=== PATIENT | female | born 1970 ===

== ENCOUNTER 2018-05-12 18:19 | Emergency (ER) | payer MEDICAID ==
[2018-05-12 18:29] VITALS: BP 137/84; PULSE 94; RESP 16; TEMP 98.3; O2SAT 99
[2018-05-12] MEDS ORDERED: Albuterol-Ipratrop 3 mg / 0.5 (3 ml) UD INH STA (18:49)
--- NOTE | 2018-05-12 18:59 | ED PDOC ---
HPI: SOB/CHF/COPD Time Seen by Provider: 05/12/18 18:30 Chief Complaint (Nursing): Shortness Of Breath Chief Complaint (Provider): Cough, chest tightness History Per: Patient History/Exam Limitations: no limitations Onset/Duration Of Symptoms: Days Current Symptoms Are (Timing): Still Present Quality: Tightness Exacerbating Factor(s): Coughing Associated Symptoms: Chest Pain, Other (near syncope) Additional History Per: Patient Additional Complaint(s): 48yo female with history of chronic bronchitis, diabetes, hypertension, high cholesterol, and neuropathy, comes to ER reporting 3 weeks of cough and chest tightness which has been waxing and waning. Patient states she was seen by her PMD twice and given 2 different courses of antibiotics, as well as albuterol and steroids but the symptoms persist. She reports today while coughing, she almost "passed out." She reports intermittent palpitation, pleuritic chest pain, left upper quadrant abdominal pain which is worse with coughing and moving. Patient also has had intermittent episodes of diarrhea and post-tussive vomiting. NO other complaints. PMD: Dr. Whipple Past Medical History Reviewed: Historical Data, Nursing Documentation, Vital Signs Vital Signs: Last Vital Signs Temp 98.3 F 05/12/18 18:25 Pulse 94 H 05/12/18 18:25 Resp 16 05/12/18 18:25 BP 137/84 05/12/18 18:25 Pulse Ox 99 05/12/18 18:25 - Medical History PMH: Anemia, Asthma, Bronchitis, Diabetes, HTN, Hypercholesterolemia, Hyperlipidemia Denies: Chronic Kidney Disease - Surgical History Surgical History: No Surg Hx - Family History Family History: States: Diabetes, Hypertension - Social History Current smoker - smoking cessation education provided: No Ex-Smoker (has not smoked in the last 12 months): Yes (quit 1 year ago) Alcohol: None Drugs: Denies - Immunization History Hx Tetanus Toxoid Vaccination: No Hx Influenza Vaccination: No Hx Pneumococcal Vaccination: No - Home Medications Home Medications: Ambulatory Orders Medication Instructions Recorded Alprazolam [Alprazolam ER] 0.5 mg PO DAILY 06/23/16 Atorvastatin [Lipitor] 10 mg PO HS 06/23/16 Cholecalciferol [Vitamin D] 50,000 unit PO 06/23/16 Cyclobenzaprine [Cyclobenzaprine 10 mg PO HS 06/23/16 HCl] Ibuprofen [Motrin Tab] 600 mg PO Q8 #30 tab 06/23/16 Losartan [Cozaar] 25 mg PO DAILY 06/23/16 Paroxetine HCl 10 mg PO DAILY 06/23/16 Sitagliptin Phos/Metformin HCl 1 each PO BID 06/23/16 [Janumet 50-500 mg Tablet] oxyCODONE/Acetaminophen [Percocet 1 tab PO QID PRN #20 tab 06/23/16 5/325 mg Tab] Alprazolam [Alprazolam ER] 0.5 mg PO DAILY 07/04/16 Atorvastatin [Lipitor] 10 mg PO HS 07/04/16 Cyclobenzaprine [Flexeril] 10 mg PO HS PRN 07/04/16 Losartan [Cozaar] 25 mg PO DAILY 07/04/16 Paroxetine HCl 10 mg PO DAILY 07/04/16 Sitagliptin Phos/Metformin HCl 1 each PO BID 07/04/16 [Janumet 50-500 mg Tablet] Azithromycin [Zithromax] 500 mg IVPB DAILY vial 07/16/16 Azithromycin [Zithromax] 500 mg IVPB DAILY vial 07/16/16 cefTRIAXone [Rocephin] 1 gm IVPB Q12H vial 07/16/16 Ibuprofen [Motrin Tab] 600 mg PO Q8 PRN #30 tab 05/12/18 Promethazine HCl/Codeine 10 ml PO Q6 PRN #120 ml 05/12/18 [Prometh-Codein 6.25-10 mg/5 ml] - Allergies Allergies/Adverse Reactions: Allergies Allergy/AdvReac Type Severity Reaction Status Date / Time No Known Allergies Allergy Unverified 01/13/14 11:56 Review of Systems ROS Statement: Except As Marked, All Systems Reviewed And Found Negative (as per HPI) Constitutional: Negative for: Fever Cardiovascular: Positive for: Palpitations, Other (chest tightness) Respiratory: Positive for: Cough, Shortness of Breath, Pleuritic Pain Gastrointestinal: Positive for: Vomiting (post-tussive), Diarrhea Physical Exam - Reviewed Nursing Documentation Reviewed: Yes Vital Signs Reviewed: Yes - Physical Exam Appears: Positive for: Non-toxic, In Acute Distress (respiratory distress) ENT: Positive for: Pharyngeal Erythema. Negative for: Tonsillar Exudate, Tonsillar Swelling Neck: Positive for: Supple Cardiovascular/Chest: Positive for: Tachycardia (regular rate). Negative for: Edema, Murmur Respiratory: Positive for: Wheezing (faint), Respiratory Distress, Other (poor air movement). Negative for: Accessory Muscle Use Extremity: Negative for: Pedal Edema Neurologic/Psych: Positive for: Alert, Oriented - Laboratory Results Result Diagrams: 05/12/18 19:08 05/12/18 19:08 - ECG O2 Sat by Pulse Oximetry: 99 (RA) Pulse Ox Interpretation: Normal Medical Decision Making Medical Decision Making: Impression: Cough, chest tightness, near-syncope Differential: Including but not limited to COPD exacerbation, bronchitis, pneumonia, CHF, ACS Plan: * Labs * Chest x-ray * Duoneb 3ml INH * Solumedrol 125mg IVP * ABG * Blood culture 2046 UA reviewed, patient with UTI. CT Abodmen/Pelvis ordered to r/o UTI. 2141 CT Abdomen/Pelvis Findings: There is a pattern splenomegaly. The liver measures 21 cm in sagittal plane, the spleen measures 13 cm.the pulmonary bases are well- aerated. The heart is not enlarged.both kidneys appear unremarkable. There is no nephrolithiasis or hydronephrosis. No perinephric fat stranding. Abdominal aorta is of normal course and caliber. No retroperitoneal adenopathy identified.the intestinal pattern is nonobstructive. The pelvic viscera is unremarkable.the pulmonary bases are well-aerated. The heart is not enlarged. Impression: Hepatosplenomegaly. Scribe Attestation: Documented by Fely Menard, acting as a scribe for Suzy Brennan MD. Provider Scribe Attestation: All medical record entries made by the Scribe were at my direction and personally dictated by me. I have reviewed the chart and agree that the record accurately reflects my personal performance of the history, physical exam, medical decision making, and the department course for this patient. I have also personally directed, reviewed, and agree with the discharge instructions and disposition. Disposition - Clinical Impression Clinical Impression: Bronchitis, Cough, Abdominal muscle strain Counseled Patient/Family Regarding: Studies Performed, Diagnosis, Need For Followup - Disposition Referrals: Shaik Whipple MD [Family Provider] - (FOLLOW UP WITH YOUR DOCTOR IN 1-2 DAYS) Disposition: Routine/Home Disposition Time: 22:00 Condition: STABLE Prescriptions: Ibuprofen [Motrin Tab] 600 mg PO Q8 PRN #30 tab PRN Reason: Pain, Moderate (4-7) Promethazine HCl/Codeine [Prometh-Codein 6.25-10 mg/5 ml] 10 ml PO Q6 PRN #120 ml PRN Reason: SEVERE COUGH ONLY Instructions: Chronic Bronchitis (DC), Cough, Adult (DC) Forms: [facility] ED School/Work Excuse
[2018-05-12 19:45] LABS: ABG ALLEN TEST YES; ARTERIAL BLOOD GAS HCO3 25.2 mmol/L (21-28); ARTERIAL BLOOD GAS O2 SAT 100.4 % (95-98); ARTERIAL BLOOD GAS PCO2 33 mm/Hg (35-45); ARTERIAL BLOOD GAS PH 7.46 (7.35-7.45); ARTERIAL BLOOD GAS PO2 88 mm/Hg (80-100); ARTERIAL BLOOD GAS TCO2 24.5 mmol/L (22-28)
[2018-05-12 19:45] LABS: BASO % 0.6 % (0.0-2.0); EOS # 0.2 K/uL (0.0-0.7); EOS % 2.7 % (0.0-4.0); HEMOGLOBIN 13.5 g/dL (12.0-16.0); LYMPH # 2.1 K/uL (1.0-4.3); LYMPH % 29.7 % (20.0-40.0); MEAN CORPUSCULAR HEMOGLOBIN 28.2 pg (27.0-31.0); MEAN CORPUSCULAR HGB CONC 32.4 g/dL (33.0-37.0); MEAN PLATELET VOLUME 8.9 fl (7.2-11.7); MONO # 0.5 K/uL (0.0-0.8); MONO % 6.7 % (0.0-10.0); NEUT # 4.2 K/uL (1.8-7.0); NEUT % 60.3 % (50.0-75.0); NRBC % 0.1 % (0.0-0.0); RBC 4.79 Mil/uL (3.80-5.20); RED CELL DISTRIBUTION WIDTH 13.2 % (11.5-14.5)
[2018-05-12 19:58] LABS: PROTHROMBIN TIME 11.3 Seconds (9.8-13.1)
[2018-05-12 20:01] LABS: PARTIAL THROMBOPLASTIN TIME 29.5 Seconds (25.6-37.1)
[2018-05-12 20:02] LABS: B-TYPE NATRIURETIC PEPTIDE 94.3 pg/ml (0-450)
[2018-05-12 20:13] LABS: ALB/GLOB RATIO 1.4 (1.0-2.1); ALBUMIN 4.3 g/dL (3.5-5.0); ALT/SGPT 35 U/L (9-52); AST/SGOT 20 U/L (14-36); BLOOD UREA NITROGEN 9 mg/dl (7-17); CALCIUM 9.1 mg/dL (8.4-10.2); GFR NON-AFRICAN AMERICAN > 60
[2018-05-12 21:06] LABS: URINE BILIRUBIN NEGATIVE (NEGATIVE); URINE BLOOD MODERATE (NEGATIVE); URINE CLARITY CLOUDY (Clear); URINE COLOR YELLOW (YELLOW); URINE GLUCOSE (UA) >=500 mg/dL (Normal); URINE LEUKOCYTE ESTERASE LARGE Leu/uL (Negative); URINE PROTEIN 30 mg/dL (NEGATIVE); URINE UROBILINOGEN 0.2-1.0 mg/dL (0.2-1.0)
--- NOTE | 2018-05-13 12:15 | RAD ---
Date of service: 05/12/2018 HISTORY: Shortness of breath. COMPARISON: No prior. TECHNIQUE: Chest PA and lateral FINDINGS: LUNGS: No active pulmonary disease. PLEURA: No significant pleural effusion identified. No pneumothorax apparent. CARDIOVASCULAR: No aortic atherosclerotic calcification present. Normal cardiac size. No pulmonary vascular congestion. OSSEOUS STRUCTURES: No significant abnormalities. VISUALIZED UPPER ABDOMEN: Normal. OTHER FINDINGS: Presternal implantable device in the soft tissues. IMPRESSION: No active disease.
--- NOTE | 2018-05-13 13:48 | CT ---
Date of service: 05/12/2018 PROCEDURE: CT Abdomen and Pelvis without intravenous contrast HISTORY: LEFT flank pain UTI r/o pyelonephrii COMPARISON: None. TECHNIQUE: Without contrast.. Contrast dose: 0 Radiation dose: Total exam DLP = 501.9 mGy-cm. This CT exam was performed using one or more of the following dose reduction techniques: Automated exposure control, adjustment of the mA and/or kV according to patient size, and/or use of iterative reconstruction technique. FINDINGS: LOWER THORAX: Unremarkable. LIVER: Evaluation of the liver is limited in that the most superior aspect of the right hepatic lobe was not included in this examination. The liver is enlarged. It measures approximately 23 cm craniocaudal although the most superior aspect of the liver is not included in this examination. There is mild diffusely diminished attenuation of the liver relative to the spleen consistent with fatty infiltration.. No mass. No biliary dilatation. Smooth contour. GALLBLADDER AND BILE DUCTS: Unremarkable. PANCREAS: Unremarkable. No gross lesion or ductal dilatation. SPLEEN: Mild splenomegaly. The spleen measures 14.9 cm in greatest dimension. No mass. ADRENALS: Right adrenal mass, 2.4 cm diameter. This measures 27 Hounsfield units. This may represent a lipid poor adrenal adenoma. However, further evaluation with opposed phase magnetic resonance imaging is advised. KIDNEYS AND URETERS: Unremarkable. No hydronephrosis. No solid mass. Please note that the patient cannot be assessed for pyelonephritis in the absence of intravenous contrast administration. VASCULATURE: Unremarkable. No aortic aneurysm. There is minimal atherosclerotic calcification of the abdominal aorta. BOWEL: Mild sigmoid diverticulosis. No evidence of diverticulitis. No bowel obstruction. No other abnormal bowel loops. APPENDIX: Unremarkable. Normal appendix. PERITONEUM: Unremarkable. No free fluid. No free air. LYMPH NODES: Unremarkable. No enlarged lymph nodes. BLADDER: Nondistended REPRODUCTIVE: Normal uterus BONES: No acute fracture. OTHER FINDINGS: None. IMPRESSION: Unable to assess for pyelonephritis in the absence of intravenous contrast administration. No evidence of urinary tract obstruction or calculus. Incidental 2.4 cm right adrenal mass. Recommend further evaluation with opposed phase magnetic resonance imaging. Hepatosplenomegaly.. Fatty infiltration of the liver. Mild sigmoid diverticulosis without evidence of diverticulitis. The preliminary findings for this examination were reported by [facility] at 9:42 p.m. on 05/12/2018. There is discordance of this report with the preliminary findings. The right adrenal mass was not described in the preliminary report of this examination.
--- NOTE | 2018-05-13 15:18 | CARD ---
APPROVED REPORT Date of service: 05/12/2018 EKG Measurement Heart [id number] <Conclusion> Normal sinus rhythm with sinus arrhythmia Possible Left atrial enlargement Borderline ECG
== END 2018-05-12 22:55 | disposition home or self-care (01) ==
LOC: H.ER 18:19
DX: J40 Bronchitis, not specified as acute or chronic (principal); R05 Cough; S39.011A Strain of muscle, fascia and tendon of abdomen, initial encounter; Z79.899 Other long term (current) drug therapy; Z87.891 Personal history of nicotine dependence; J44.9 Chronic obstructive pulmonary disease, unspecified; E11.9 Type 2 diabetes mellitus without complications; I10 Essential (primary) hypertension
CPT/HCPCS: 36600; 71046; 74176; 80053; 81003; 81025; 82803; 82948; 83735; 83880; 84100; 84443; 84484; 85025; 85610; 85730; 87040; 87086; 87804; 93005; 96374; 99284; J2930